=== PATIENT | female | born 2000 | race Caucasian/White ===

== ENCOUNTER 2018-05-04 14:31 | Emergency (ER) | payer OTHER ==
[~2018-05-04] VITALS: Ht 157.5 cm; Wt 56.7 kg
[~2018-05-04 14:31] MED LIST: AMOX500 PO; BENTYL10 MG PO; CEPH500 PO; Crutch1 EACH MISC; OMEP20ER PO; ONDA4 PO; PROM25 PO; Pyridium200 MG PO
== END 2018-05-04 16:26 | disposition left against medical advice (07) ==
LOC: ER 14:31
DX: Z53.21 Procedure and treatment not carried out due to patient leaving prior to being seen by health care provider (principal)
CPT/HCPCS: 71046; 99283

== ENCOUNTER 2018-11-19 02:33 | Observation (INO) | payer OTHER ==
[~2018-11-19] VITALS: Ht 160 cm; Wt 59.0 kg
[2018-11-19] MEDS ORDERED: LATUDA80 MG PO (02:52)
[2018-11-19] MEDS ORDERED: LAMO100 PO (02:52)
[2018-11-19] MEDS ORDERED: LITH300ER PO (02:52)
[2018-11-19 05:15] LABS: BASOPHILS ABSOLUTE AUTO 0.04 K/mm3 (0.00-0.23); BASOPHILS PERCENT AUTO 1 % (0-2); EOSINOPHILS ABSOLUTE AUTO 0.15 K/mm3 (0.00-0.68); EOSINOPHILS PERCENT AUTO 2 % (0-6); Hemoglobin 13.6 g/dL (11.5-16.0); IMMATURE GRAN ABSOLUTE AUTO 0.02 K/mm3 (0.00-0.10); IMMATURE GRAN PERCENT AUTO 0 % (0-1); LYMPHOCYTES ABSOLUTE AUTO 2.69 K/mm3 (0.84-5.20); LYMPHOCYTES PERCENT AUTO 32 % (21-46); MONOCYTES ABSOLUTE AUTO 0.43 K/mm3 (0.16-1.47); MONOCYTES PERCENT AUTO 5 % (4-13); Mean Corpuscular HGB 31.3 pg (26.0-34.0); Mean Corpuscular HGB Conc 32.4 g/dL (31.5-36.5); Mean Corpuscular Volume 97 fL (80-100); NEUTROPHILS ABSOLUTE AUTO 5.08 K/mm3 (1.96-9.15); NEUTROPHILS PERCENT AUTO 60 % (41-73); Platelet Count 349 K/mm3 (150-400); RDW Standard Deviation 43.1 fL (35.1-46.3); Red Blood Cell Count 4.35 M/mm3 (3.80-5.20); White Blood Cell Count 8.41 K/mm3 (4.00-11.30)
[2018-11-19 05:40] LABS: Alanine Aminotransfer (ALT/SGP 18 U/L (12-78); Albumin/Globulin Ratio 1.1 (0.8-1.8); Alk Phos 77 U/L (50-136); Anion Gap 10 mmol/L (6-16); Aspartate Aminotrans (AST/SGOT 11 U/L (12-37); Bilirubin, Total 0.6 mg/dL (0.1-1.0); Blood Urea Nitrogen 7 mg/dL (8-24); Bun/Creatinine Ratio 10.5 (12.0-20.0); CO2, Blood 24 mmol/L (21-32); Calcium, Blood 8.5 mg/dL (8.5-10.1); Chloride, Blood 111 mmol/L (98-108); Creatinine, Blood 0.67 mg/dL (0.40-1.00); Ethanol (Alcohol), Blood, Med 134 mg/dL; Globulin, Blood 3.6 g/dL (2.2-4.0); Glomerular Filtration Rate >60 (60-); Glucose, Blood 101 mg/dL (70-99); Potassium, Blood 3.8 mmol/L (3.5-5.5); Salicylate <1.7 mg/dL (2.8-20.0); Sodium, Blood 145 mmol/L (136-145); Thyroxine (T4) 9.4 ug/dL (4.8-13.9); Total Protein, Blood 7.6 g/dL (6.4-8.2)
[2018-11-19 05:48] LABS: Acetaminophen, Random <2.0 ug/mL (10.0-30.0)
[2018-11-19 05:57] LABS: Lithium <0.20 mmol/L (0.60-1.20)
[2018-11-19 07:34] LABS: Source, Urine Clean Catch
[2018-11-19 07:42] LABS: Bilirubin, Urine Neg (Neg); Blood, Urine 2+ (Neg); Glucose Qualitative, Urine Neg (Neg); Ketones, Urine Neg (Neg); Leukocyte Esterase, Urine 1+ (Neg); Nitrite, Urine Neg (Neg); Protein, Urine Neg (Neg); Specific Gravity, Urine 1.015 (1.003-1.022); Urobilinogen, Urine NORM (Normal)
[2018-11-19 07:46] LABS: Appearance, Urine Clear (Clear); Color, Urine Yellow (P-Yellow)
[2018-11-19 08:02] LABS: U Amphetamine Screen Not Detected; U Barbituate Screen Not Detected; U Benzodiazapine Screen Not Detected; U Buprenorphine Screen Not Detected; U Cannabinoids Screen DETECTED; U Cocaine Screen Not Detected; U Methadone Screen Not Detected; U Methamphetamine Screen Not Detected; U Opiates Screen Not Detected; U Oxycodone Screen Not Detected; U Phencyclidine Screen Not Detected; U Propoxyphene Screen Not Detected
[2018-11-19 08:03] LABS: Bacteria Few /hpf; Squamous Epithelial Cells Mod /hpf (Few)
[2018-11-19 08:04] LABS: Mucus Light (0-Heavy)
== END 2018-11-21 14:13 | disposition home or self-care (01) ==
LOC: ER 02:33 → EOR 02:34
PROVIDERS: Emergency Medicine
DX: S71.111A Laceration without foreign body, right thigh, initial encounter (principal); S71.112A Laceration without foreign body, left thigh, initial encounter; F31.4 Bipolar disorder, current episode depressed, severe, without psychotic features; Z79.899 Other long term (current) drug therapy; X78.9XXA Intentional self-harm by unspecified sharp object, initial encounter
CPT/HCPCS: 12001; 36415; 80053; 80178; 81001; 81025; 84436; 84443; 85025; 87086; 99285-25; G0378; G0480; Q0163; Q3014

== ENCOUNTER 2018-12-01 10:58 | Emergency (ER) | payer OTHER ==
[~2018-12-01] VITALS: Ht 154.9 cm; Wt 59.0 kg
[~2018-12-01 10:58] MED LIST changes: +LAMO100 PO; +LATUDA80 MG PO; +LITH300ER PO
[2018-12-01] MEDS ORDERED: OLAN5 PO (11:40)
[2018-12-01] MEDS ORDERED: LATUDA60 MG PO (11:40)
[2018-12-01] MEDS ORDERED: Zyprexa10 MG PO (11:48)
== END 2018-12-01 11:53 | disposition home or self-care (01) ==
LOC: ER 10:58
DX: S71.111D Laceration without foreign body, right thigh, subsequent encounter (principal); Z76.0 Encounter for issue of repeat prescription; Y33.XXXD Other specified events, undetermined intent, subsequent encounter; Z79.899 Other long term (current) drug therapy

== ENCOUNTER → 2019-01-31 | Outpatient (CLI) | payer OTHER ==
[~2019-01-31] MED LIST changes: +LATUDA60 MG PO; +OLAN5 PO; +Zyprexa10 MG PO
[2019-02-03 03:13] LABS: CHLAMYDIA TRACHOMATIS, NAA Negative (Negative); NEISSERIA GONORRHOEAE, NAA Negative (Negative)
== END ==
LOC: LAB SHORT 20:06 → LAB 20:06
PROVIDERS: Nurse Practitioner Women's Health
DX: Z11.3 Encounter for screening for infections with a predominantly sexual mode of transmission (principal); N89.8 Other specified noninflammatory disorders of vagina
CPT/HCPCS: 87070; 87205; 87491; 87591

== ENCOUNTER 2019-03-25 08:33 | Emergency (ER) | payer OTHER ==
[~2019-03-25] VITALS: Ht 157.5 cm; Wt 65.8 kg
[2019-03-25] MEDS ORDERED: Augmentin 875-1 EACH PO (08:50)
[2019-03-25] MEDS ORDERED: BIRTH CONTROL (08:50)
== END 2019-03-25 10:18 | disposition home or self-care (01) ==
LOC: ER 08:33
DX: M25.512 Pain in left shoulder (principal); M25.522 Pain in left elbow; F31.9 Bipolar disorder, unspecified; F17.200 Nicotine dependence, unspecified, uncomplicated
CPT/HCPCS: 73030; 73080; 81025

== ENCOUNTER 2019-07-07 15:07 | Observation (INO) | payer OTHER ==
[~2019-07-07] VITALS: Ht 160 cm; Wt 56.7 kg
[~2019-07-07 15:07] MED LIST changes: +Augmentin 875-1 EACH PO; +BIRTH CONTROL
[2019-07-07 16:52] LABS: BASOPHILS ABSOLUTE AUTO 0.03 K/mm3 (0.00-0.23); BASOPHILS PERCENT AUTO 0 % (0-2); EOSINOPHILS ABSOLUTE AUTO 0.07 K/mm3 (0.00-0.68); EOSINOPHILS PERCENT AUTO 1 % (0-6); Hematocrit 40.3 % (33.0-51.0); Hemoglobin 13.6 g/dL (11.5-16.0); IMMATURE GRAN ABSOLUTE AUTO 0.02 K/mm3 (0.00-0.10); IMMATURE GRAN PERCENT AUTO 0 % (0-1); LYMPHOCYTES ABSOLUTE AUTO 1.92 K/mm3 (0.84-5.20); LYMPHOCYTES PERCENT AUTO 18 % (21-46); MONOCYTES ABSOLUTE AUTO 0.96 K/mm3 (0.16-1.47); MONOCYTES PERCENT AUTO 9 % (4-13); Mean Corpuscular HGB 31.9 pg (26.0-34.0); Mean Corpuscular HGB Conc 33.7 g/dL (31.5-36.5); Mean Corpuscular Volume 94 fL (80-100); Mean Platelet Volume 9.5 fL (9.1-12.4); NEUTROPHILS ABSOLUTE AUTO 7.63 K/mm3 (1.96-9.15); NEUTROPHILS PERCENT AUTO 72 % (41-73); Platelet Count 311 K/mm3 (150-400); RDW Coefficient Variation 12.1 % (11.7-14.2); RDW Standard Deviation 41.8 fL (35.1-46.3); Red Blood Cell Count 4.27 M/mm3 (3.80-5.20); White Blood Cell Count 10.63 K/mm3 (4.00-11.30)
[2019-07-07 17:01] LABS: Source, Urine Voided
[2019-07-07 17:05] LABS: Bilirubin, Urine Neg (Neg); Blood, Urine 2+ (Neg); Glucose Qualitative, Urine Neg (Neg); Ketones, Urine 1+ (Neg); Leukocyte Esterase, Urine 2+ (Neg); Nitrite, Urine Pos (Neg); Protein, Urine Neg (Neg); Urobilinogen, Urine NORM (Normal)
[2019-07-07 17:18] LABS: U Amphetamine Screen Not Detected; U Cannabinoids Screen DETECTED
[2019-07-07 17:19] LABS: U Barbituate Screen Not Detected; U Benzodiazapine Screen Not Detected; U Buprenorphine Screen Not Detected; U Cocaine Screen Not Detected; U Methadone Screen Not Detected; U Methamphetamine Screen Not Detected; U Opiates Screen Not Detected; U Oxycodone Screen Not Detected; U Phencyclidine Screen Not Detected; U Propoxyphene Screen Not Detected
[2019-07-07 17:22] LABS: Alanine Aminotransfer (ALT/SGP 21 U/L (12-78); Albumin, Blood 4.5 g/dL (3.4-5.0); Albumin/Globulin Ratio 1.3 (0.8-1.8); Alk Phos 75 U/L (50-136); Anion Gap 7 mmol/L (6-16); Aspartate Aminotrans (AST/SGOT 10 U/L (12-37); Bilirubin, Total 1.3 mg/dL (0.1-1.0); Blood Urea Nitrogen 4 mg/dL (8-24); Bun/Creatinine Ratio 6.3 (12.0-20.0); CO2, Blood 26 mmol/L (21-32); Calcium, Blood 9.5 mg/dL (8.5-10.1); Chloride, Blood 105 mmol/L (98-108); Creatinine, Blood 0.64 mg/dL (0.40-1.00); Ethanol (Alcohol), Blood, Med <3 mg/dL; Globulin, Blood 3.4 g/dL (2.2-4.0); Glomerular Filtration Rate >60 (60-); Glucose, Blood 112 mg/dL (70-99); Potassium, Blood 3.2 mmol/L (3.5-5.5); Salicylate 3.3 mg/dL (2.8-20.0); Sodium, Blood 138 mmol/L (136-145); Total Protein, Blood 7.9 g/dL (6.4-8.2)
[2019-07-07 17:23] LABS: Appearance, Urine Hazy (Clear); Color, Urine Yellow (P-Yellow)
[2019-07-07 17:29] LABS: Amorphous Mod (0-Heavy); Bacteria Many /hpf; Red Blood Cells, Urine 0-2 /hpf (0-2); Squamous Epithelial Cells Many /hpf (Few)
[2019-07-07 17:33] LABS: Acetaminophen, Random <2.0 ug/mL (10.0-30.0)
[2019-07-08] MEDS ORDERED: OLAN10 PO (20:55)
== END 2019-07-08 21:15 | disposition home or self-care (01) ==
LOC: ER 15:07 → EOR 15:08
PROVIDERS: ADMIT Emergency Medicine
DX: F60.3 Borderline personality disorder (principal); F31.9 Bipolar disorder, unspecified
CPT/HCPCS: 80053; 81001; 81025; 84443; 85025; 87077; 87086; 87186; 96372; 99285; G0378; G0480; J1200; J1630; J2060; Q3014

== ENCOUNTER 2019-07-28 01:18 | Emergency (ER) | payer OTHER ==
[~2019-07-28] VITALS: Ht 154.9 cm; Wt 72.6 kg
[~2019-07-28 01:18] MED LIST changes: +OLAN10 PO
[2019-07-28] MEDS ORDERED: PROP10 PO (01:41)
[2019-07-28 02:14] LABS: Source, Urine Clean Catch
[2019-07-28 02:35] LABS: Bilirubin, Urine Neg (Neg); Blood, Urine 4+ (Neg); Glucose Qualitative, Urine Neg (Neg); Ketones, Urine Neg (Neg); Leukocyte Esterase, Urine Neg (Neg); Nitrite, Urine Neg (Neg); Protein, Urine Neg (Neg); Specific Gravity, Urine 1.005 (1.003-1.022); Urobilinogen, Urine NORM (Normal)
[2019-07-28 02:38] LABS: Appearance, Urine Clear (Clear); Color, Urine Yellow (P-Yellow)
[2019-07-28 02:43] LABS: Bacteria Not Seen /hpf; Red Blood Cells, Urine Rare /hpf (0-2); Squamous Epithelial Cells Few /hpf (Few); White Blood Cells, Urine Not Seen /hpf (0-5)
== END 2019-07-28 02:30 | disposition left against medical advice (07) ==
LOC: ER 01:18
PROVIDERS: Emergency Medicine
DX: Z53.21 Procedure and treatment not carried out due to patient leaving prior to being seen by health care provider (principal)
CPT/HCPCS: 81001; 81025

== ENCOUNTER → 2019-09-27 | Outpatient (CLI) | payer OTHER ==
[~2019-09-27] MED LIST changes: +PROP10 PO
[2019-09-27 19:19] LABS: Source, Urine Catheter
[2019-09-27 20:33] LABS: Bilirubin, Urine Neg (Neg); Blood, Urine 1+ (Neg); Glucose Qualitative, Urine Neg (Neg); Ketones, Urine Neg (Neg); Leukocyte Esterase, Urine Neg (Neg); Nitrite, Urine Neg (Neg); Protein, Urine Neg (Neg); Urobilinogen, Urine NORM (Normal)
[2019-09-27 20:51] LABS: Appearance, Urine Hazy (Clear); Color, Urine Yellow (P-Yellow)
[2019-09-27 20:54] LABS: Bacteria Mod /hpf; Squamous Epithelial Cells Mod /hpf (Few)
== END | disposition home or self-care (01) ==
LOC: LAB 19:07 → LAB SHORT 19:07
PROVIDERS: Nurse Practitioner Women's Health
DX: Z11.3 Encounter for screening for infections with a predominantly sexual mode of transmission (principal); Z12.4 Encounter for screening for malignant neoplasm of cervix; N89.8 Other specified noninflammatory disorders of vagina
CPT/HCPCS: 81001

== ENCOUNTER 2020-03-12 18:51 | Emergency (ER) | payer OTHER ==
[~2020-03-12] VITALS: Ht 157.5 cm; Wt 70.8 kg
[2020-03-12 20:11] LABS: BASOPHILS ABSOLUTE AUTO 0.06 K/mm3 (0.00-0.23); BASOPHILS PERCENT AUTO 0 % (0-2); EOSINOPHILS ABSOLUTE AUTO 0.04 K/mm3 (0.00-0.68); EOSINOPHILS PERCENT AUTO 0 % (0-6); Hematocrit 41.9 % (33.0-51.0); IMMATURE GRAN ABSOLUTE AUTO 0.19 K/mm3 (0.00-0.10); IMMATURE GRAN PERCENT AUTO 1 % (0-1); LYMPHOCYTES ABSOLUTE AUTO 1.68 K/mm3 (0.84-5.20); LYMPHOCYTES PERCENT AUTO 7 % (21-46); MONOCYTES ABSOLUTE AUTO 0.75 K/mm3 (0.16-1.47); MONOCYTES PERCENT AUTO 3 % (4-13); Mean Corpuscular HGB 30.7 pg (26.0-34.0); Mean Corpuscular HGB Conc 33.4 g/dL (31.5-36.5); Mean Corpuscular Volume 92 fL (80-100); Mean Platelet Volume 9.5 fL (9.1-12.4); NEUTROPHILS ABSOLUTE AUTO 20.04 K/mm3 (1.96-9.15); NEUTROPHILS PERCENT AUTO 88 % (41-73); Platelet Count 455 K/mm3 (150-400); RDW Standard Deviation 40.6 fL (35.1-46.3); Red Blood Cell Count 4.56 M/mm3 (3.80-5.20); White Blood Cell Count 22.76 K/mm3 (4.00-11.30)
[2020-03-12 20:52] LABS: BAND PERCENT MAN 2 % (0-8); BASOPHILS PERCENT MAN 0 % (0-2); EOSINOPHILS ABSOLUTE MAN 0.22 K/mm3 (0.00-0.68); EOSINOPHILS PERCENT MAN 1 % (0-6); LYMPHOCYTES ABSOLUTE MAN 1.13 K/mm3 (0.84-5.20); LYMPHOCYTES PERCENT MAN 5 % (21-46); MONOCYTES ABSOLUTE MAN 0.68 K/mm3 (0.16-1.47); MONOCYTES PERCENT MAN 3 % (4-13); NEUTROPHILS ABSOLUTE MAN 20.71 K/mm3 (1.96-9.15); SEG NEUTROPHILS PERCENT MAN 89 % (41-73); TOTAL CELLS COUNTED 100
[2020-03-12 21:27] LABS: Source, Urine Clean Catch
[2020-03-12 21:29] LABS: Alanine Aminotransfer (ALT/SGP 27 U/L (12-78); Albumin, Blood 4.2 g/dL (3.4-5.0); Alk Phos 101 U/L (50-136); Anion Gap 9 mmol/L (6-16); Aspartate Aminotrans (AST/SGOT 18 U/L (12-37); Bilirubin, Total 1.1 mg/dL (0.1-1.0); Blood Urea Nitrogen 13 mg/dL (8-24); Bun/Creatinine Ratio 16.4 (12.0-20.0); CO2, Blood 23 mmol/L (21-32); Calcium, Blood 9.1 mg/dL (8.5-10.1); Chloride, Blood 104 mmol/L (98-108); Creatinine, Blood 0.79 mg/dL (0.40-1.00); Globulin, Blood 4.4 g/dL (2.2-4.0); Glomerular Filtration Rate >60 (60-); Glucose, Blood 163 mg/dL (70-99); Potassium, Blood 3.8 mmol/L (3.5-5.5); Sodium, Blood 136 mmol/L (136-145); Total Protein, Blood 8.6 g/dL (6.4-8.2)
[2020-03-12 21:44] LABS: Appearance, Urine Turbid (Clear); Bilirubin, Urine Neg (Neg); Blood, Urine 3+ (Neg); Color, Urine Yellow (P-Yellow); Glucose Qualitative, Urine Neg (Neg); Ketones, Urine 4+ (Neg); Leukocyte Esterase, Urine Neg (Neg); Nitrite, Urine Neg (Neg); Protein, Urine 2+ (Neg); Urobilinogen, Urine NORM (Normal)
[2020-03-12 21:57] LABS: Amorphous Heavy (0-Heavy); Bacteria Few /hpf; Red Blood Cells, Urine 0-2 /hpf (0-2); Squamous Epithelial Cells Few /hpf (Few); White Blood Cells, Urine 0-2 /hpf (0-5)
== END 2020-03-13 01:28 | disposition home or self-care (01) ==
LOC: ER 18:51
PROVIDERS: Emergency Medicine; Physician Assistant
DX: E86.0 Dehydration (principal); R11.2 Nausea with vomiting, unspecified; D72.829 Elevated white blood cell count, unspecified; F31.9 Bipolar disorder, unspecified; F17.200 Nicotine dependence, unspecified, uncomplicated; Z79.899 Other long term (current) drug therapy
CPT/HCPCS: 36415; 80053; 81001; 83690; 84703; 85025; 96361; 96374; 96375; 99283-25; J0780; J1200; J2405; J7030

== ENCOUNTER 2020-07-11 21:40 | Observation (INO) | payer OTHER ==
[~2020-07-11] VITALS: Ht 154.9 cm; Wt 61.2 kg
[2020-07-11 23:53] LABS: Source, Urine Clean Catch
[2020-07-11 23:58] LABS: Bilirubin, Urine Neg (Neg); Blood, Urine 1+ (Neg); Glucose Qualitative, Urine Neg (Neg); Ketones, Urine Neg (Neg); Leukocyte Esterase, Urine Neg (Neg); Nitrite, Urine Neg (Neg); Protein, Urine Neg (Neg); Urobilinogen, Urine NORM (Normal); pH, Urine 6.5 (5.0-8.0)
[2020-07-12 00:06] LABS: BASOPHILS ABSOLUTE AUTO 0.03 K/mm3 (0.00-0.23); BASOPHILS PERCENT AUTO 0 % (0-2); EOSINOPHILS ABSOLUTE AUTO 0.12 K/mm3 (0.00-0.68); EOSINOPHILS PERCENT AUTO 1 % (0-6); Hematocrit 44.4 % (33.0-51.0); Hemoglobin 14.5 g/dL (11.5-16.0); IMMATURE GRAN ABSOLUTE AUTO 0.02 K/mm3 (0.00-0.10); IMMATURE GRAN PERCENT AUTO 0 % (0-1); LYMPHOCYTES PERCENT AUTO 37 % (21-46); MONOCYTES ABSOLUTE AUTO 0.52 K/mm3 (0.16-1.47); MONOCYTES PERCENT AUTO 6 % (4-13); Mean Corpuscular HGB Conc 32.7 g/dL (31.5-36.5); Mean Corpuscular Volume 95 fL (80-100); Mean Platelet Volume 9.2 fL (9.1-12.4); NEUTROPHILS ABSOLUTE AUTO 5.23 K/mm3 (1.96-9.15); NEUTROPHILS PERCENT AUTO 56 % (41-73); Platelet Count 393 K/mm3 (150-400); RDW Coefficient Variation 12.9 % (11.7-14.2); RDW Standard Deviation 45.2 fL (35.1-46.3); Red Blood Cell Count 4.67 M/mm3 (3.80-5.20); White Blood Cell Count 9.32 K/mm3 (4.00-11.30)
[2020-07-12 00:19] LABS: U Amphetamine Screen Not Detected; U Barbituate Screen Not Detected; U Benzodiazapine Screen Not Detected; U Buprenorphine Screen Not Detected; U Cannabinoids Screen DETECTED; U Cocaine Screen Not Detected; U Methadone Screen Not Detected; U Methamphetamine Screen Not Detected; U Opiates Screen Not Detected; U Oxycodone Screen Not Detected; U Phencyclidine Screen Not Detected; U Propoxyphene Screen Not Detected
[2020-07-12 00:34] LABS: Alanine Aminotransfer (ALT/SGP 27 U/L (12-78); Albumin, Blood 4.1 g/dL (3.4-5.0); Albumin/Globulin Ratio 1.1 (0.8-1.8); Alk Phos 82 U/L (50-136); Anion Gap 5 mmol/L (6-16); Aspartate Aminotrans (AST/SGOT 15 U/L (12-37); Bilirubin, Total 0.3 mg/dL (0.1-1.0); Blood Urea Nitrogen 5 mg/dL (8-24); Bun/Creatinine Ratio 7.1 (12.0-20.0); CO2, Blood 27 mmol/L (21-32); Calcium, Blood 8.4 mg/dL (8.5-10.1); Chloride, Blood 113 mmol/L (98-108); Creatinine, Blood 0.71 mg/dL (0.40-1.00); Ethanol (Alcohol), Blood, Med 250 mg/dL; Globulin, Blood 3.9 g/dL (2.2-4.0); Glomerular Filtration Rate >60 (60-); Glucose, Blood 108 mg/dL (70-99); Potassium, Blood 3.8 mmol/L (3.5-5.5); Sodium, Blood 145 mmol/L (136-145)
[2020-07-12 00:35] LABS: Appearance, Urine Clear (Clear); Color, Urine Pale Yellow (P-Yellow)
[2020-07-12 00:40] LABS: Bacteria Rare /hpf; Red Blood Cells, Urine Not Seen /hpf (0-2); Squamous Epithelial Cells Rare /hpf (Few); White Blood Cells, Urine Not Seen /hpf (0-5)
== END 2020-07-12 11:15 | disposition home or self-care (01) ==
LOC: ER 21:40 → EOR 21:41
PROVIDERS: Emergency Medicine; ADMIT Emergency Medicine
DX: S41.112A Laceration without foreign body of left upper arm, initial encounter (principal); X83.8XXA Intentional self-harm by other specified means, initial encounter; F31.9 Bipolar disorder, unspecified; F17.210 Nicotine dependence, cigarettes, uncomplicated
CPT/HCPCS: 80053; 81001; 85025; 99285; G0378; G0480; Q3014

== ENCOUNTER 2020-07-31 21:52 | Inpatient (IN) | payer OTHER ==
[~2020-07-31] VITALS: Ht 165.1 cm; Wt 68.9 kg
[2020-07-31 22:38] LABS: BASOPHILS ABSOLUTE AUTO 0.06 K/mm3 (0.00-0.23); BASOPHILS PERCENT AUTO 0 % (0-2); EOSINOPHILS ABSOLUTE AUTO 0.32 K/mm3 (0.00-0.68); EOSINOPHILS PERCENT AUTO 2 % (0-6); Hematocrit 43.8 % (33.0-51.0); Hemoglobin 14.3 g/dL (11.5-16.0); IMMATURE GRAN ABSOLUTE AUTO 0.07 K/mm3 (0.00-0.10); IMMATURE GRAN PERCENT AUTO 0 % (0-1); LYMPHOCYTES ABSOLUTE AUTO 4.08 K/mm3 (0.84-5.20); LYMPHOCYTES PERCENT AUTO 21 % (21-46); MONOCYTES ABSOLUTE AUTO 1.24 K/mm3 (0.16-1.47); MONOCYTES PERCENT AUTO 6 % (4-13); Mean Corpuscular HGB 31.2 pg (26.0-34.0); Mean Corpuscular HGB Conc 32.6 g/dL (31.5-36.5); Mean Corpuscular Volume 95 fL (80-100); Mean Platelet Volume 9.6 fL (9.1-12.4); NEUTROPHILS ABSOLUTE AUTO 13.74 K/mm3 (1.96-9.15); NEUTROPHILS PERCENT AUTO 70 % (41-73); Platelet Count 380 K/mm3 (150-400); RDW Coefficient Variation 13.1 % (11.7-14.2); RDW Standard Deviation 46.1 fL (35.1-46.3); Red Blood Cell Count 4.59 M/mm3 (3.80-5.20); White Blood Cell Count 19.51 K/mm3 (4.00-11.30)
[2020-07-31 22:50] LABS: Alanine Aminotransfer (ALT/SGP 27 U/L (12-78); Albumin, Blood 4.2 g/dL (3.4-5.0); Alk Phos 79 U/L (50-136); Anion Gap 8 mmol/L (6-16); Aspartate Aminotrans (AST/SGOT 19 U/L (12-37); Bilirubin, Total 0.6 mg/dL (0.1-1.0); Blood Urea Nitrogen 14 mg/dL (8-24); Bun/Creatinine Ratio 17.6 (12.0-20.0); CO2, Blood 22 mmol/L (21-32); Calcium, Blood 9.2 mg/dL (8.5-10.1); Chloride, Blood 109 mmol/L (98-108); Ethanol (Alcohol), Blood, Med 6 mg/dL; Glomerular Filtration Rate >60 (60-); Glucose, Blood 93 mg/dL (70-99); Potassium, Blood 4.1 mmol/L (3.5-5.5); Sodium, Blood 139 mmol/L (136-145); Total Protein, Blood 8.2 g/dL (6.4-8.2)
[2020-07-31 22:52] LABS: Acetaminophen, Random <2.0 ug/mL (10.0-30.0)
[2020-07-31 23:05] LABS: CPK Creatine Kinase 130 U/L (26-193)
[2020-07-31 23:33] LABS: Source, Urine Clean Catch
[2020-07-31 23:35] LABS: Bilirubin, Urine Neg (Neg); Blood, Urine 1+ (Neg); Glucose Qualitative, Urine Neg (Neg); Ketones, Urine Neg (Neg); Leukocyte Esterase, Urine Neg (Neg); Nitrite, Urine Neg (Neg); Protein, Urine Neg (Neg); Specific Gravity, Urine 1.025 (1.003-1.022); Urobilinogen, Urine NORM (Normal)
[2020-07-31 23:50] LABS: U Amphetamine Screen Not Detected; U Barbituate Screen Not Detected; U Benzodiazapine Screen Not Detected; U Buprenorphine Screen Not Detected; U Cannabinoids Screen DETECTED; U Cocaine Screen Not Detected; U Methadone Screen Not Detected; U Methamphetamine Screen Not Detected; U Opiates Screen Not Detected; U Oxycodone Screen Not Detected; U Phencyclidine Screen Not Detected; U Propoxyphene Screen Not Detected
[2020-08-01] LABS: Color, Urine Yellow (P-Yellow)
[2020-08-01 00:01] LABS: Appearance, Urine Clear (Clear)
[2020-08-01 00:02] LABS: Bacteria Not Seen /hpf; Red Blood Cells, Urine Rare /hpf (0-2); Squamous Epithelial Cells Few /hpf (Few); White Blood Cells, Urine Not Seen /hpf (0-5)
[2020-08-01 01:22] LABS: Magnesium, Blood 2.3 mg/dL (1.6-2.4)
[2020-08-01 01:22] LABS: PCO2 Arterial 40.1 mmHg (35-45); PO2 Arterial 115 mmHg (80-100); pH Blood Arterial 7.33 (7.35-7.45)
[2020-08-01 04:09] LABS: BASOPHILS ABSOLUTE AUTO 0.03 K/mm3 (0.00-0.23); BASOPHILS PERCENT AUTO 0 % (0-2); EOSINOPHILS ABSOLUTE AUTO 0.21 K/mm3 (0.00-0.68); EOSINOPHILS PERCENT AUTO 1 % (0-6); Hematocrit 41.2 % (33.0-51.0); Hemoglobin 13.1 g/dL (11.5-16.0); IMMATURE GRAN ABSOLUTE AUTO 0.07 K/mm3 (0.00-0.10); IMMATURE GRAN PERCENT AUTO 0 % (0-1); LYMPHOCYTES PERCENT AUTO 17 % (21-46); MONOCYTES ABSOLUTE AUTO 1.33 K/mm3 (0.16-1.47); MONOCYTES PERCENT AUTO 8 % (4-13); Mean Corpuscular HGB 30.8 pg (26.0-34.0); Mean Corpuscular HGB Conc 31.8 g/dL (31.5-36.5); Mean Corpuscular Volume 97 fL (80-100); Mean Platelet Volume 9.5 fL (9.1-12.4); NEUTROPHILS ABSOLUTE AUTO 12.78 K/mm3 (1.96-9.15); NEUTROPHILS PERCENT AUTO 73 % (41-73); Platelet Count 318 K/mm3 (150-400); RDW Coefficient Variation 13.2 % (11.7-14.2); RDW Standard Deviation 46.8 fL (35.1-46.3); Red Blood Cell Count 4.26 M/mm3 (3.80-5.20); White Blood Cell Count 17.42 K/mm3 (4.00-11.30)
[2020-08-01 04:37] LABS: Alanine Aminotransfer (ALT/SGP 27 U/L (12-78); Albumin, Blood 3.5 g/dL (3.4-5.0); Albumin/Globulin Ratio 1.1 (0.8-1.8); Alk Phos 65 U/L (50-136); Anion Gap 6 mmol/L (6-16); Aspartate Aminotrans (AST/SGOT 22 U/L (12-37); Bilirubin, Total 0.7 mg/dL (0.1-1.0); Blood Urea Nitrogen 13 mg/dL (8-24); CO2, Blood 25 mmol/L (21-32); Calcium, Blood 8.4 mg/dL (8.5-10.1); Chloride, Blood 110 mmol/L (98-108); Creatinine, Blood 0.77 mg/dL (0.40-1.00); Globulin, Blood 3.2 g/dL (2.2-4.0); Glomerular Filtration Rate >60 (60-); Glucose, Blood 92 mg/dL (70-99); Potassium, Blood 3.8 mmol/L (3.5-5.5); Sodium, Blood 141 mmol/L (136-145); Total Protein, Blood 6.7 g/dL (6.4-8.2)
--- NOTE | 2020-08-01 04:42 | NUR ---
ADMIT NOTE PATIENT ADMITTED TO ICU 12 VIA STRETCHER FROM ED AT 0040. PROPOFOL INFUSING AT 60 MCG/KG/MIN. PATIENT PULLING AGAINST SOFT RESTRAINTS X 4. ETT IN PLACE. VITAL SIGNS STABLE UPON ARRIVAL. [place] CATHETER IN PLACE AND PATENT. PIV X [address] NS BOLUS COMPLETED. PATIENT ARRIVED WITH A CELL PHONE AND A SKIRT WHICH WERE PLACED IN A BELONGING BAG. PROVIDER CALLED REGARDING SEDATION NEEDS. PATIENT STILL AGITATED, SITTING UP IN BED AND KICKING. ORDERS RECIEVED FOR ADDITIONAL SEDATION. CLARIFIED ZOSYN ORDER. THIS WILL BE HELD AND WE WILL CONTINUE TO MONITOR FOR SIGNS OF INFECTION.
--- NOTE | 2020-08-01 07:00 | NUR ---
CARE ASSUMED 0700 PT INTUBATED AND SEDATED, PROPOFOL @ 60. AC 14, 400, 5, 25% AND SPO2 97%. PT ABLE TO SQUEEZE HAND, NODS HEAD, PULLING AT RESTRAINTS OCCASIONALLY, AND OPENS EYES OCCASIONALLY DURING ORAL CARE.PT BECOMES RESTLESS/AGIATED AT TIME AND THRASHING IN BED. DIFFICULT TO REDIRECT. PRN VERSAD GIVEN WITH GOOD EFFECT. NS INFUSING AT 75 ML/HR. PT IS ON FOUR POINT SOFT RESTRAINTS. LUNG SOUNDS CLEAR. [place] CATH IN PLACE. PATENT AND INTACT. WILL CONTINUE TO MONITER.
--- NOTE | 2020-08-01 14:44 | NUR ---
EXTUBATION 1330 DR. MONTANO AND RT AT PT BEDSIDE FOR EXTUBATION. PROPOFOL STOPPED AND PRECEDEX INCREASED TO 0.07 MCG. PTS AGITATION INCREASED AND THRASHING IN BED. VITAL SIGNS STABLE. PT RECEIVED ATIVAN 2 MG AND HALOPERIDOL 3 MG BEFORE EXTUBATION. PT WAS EXTUBATED SUCCESSFULLY AT 1330. SP02 98% ON ROOM AIR. POST EXTUBATION, PT VITAL SIGNS CONTINUE TO BE STABLE AND PRECEDEX DECREASED TO 0.05 MCG. PT STATES, "GOD TOOK MY VOICE, AND YOU KNOW IT " WHEN TRYING TO REORIENT PT TO THE UNIT. PT BECAME SLIGHTLY AGITATED WHEN CONVERSING WITH STAFF BUT QUICKLY WENT BACK TO SLEEP WHEN NOT STIMULATED. WILL CONTINUE TO MONITOR.
--- NOTE | 2020-08-01 18:26 | NUR ---
SHIFT SUMMARY SEE PREVIOUS NOTE RELATED TO EXTUBATION AND BEHAVIORS. PT MOSTLY SLEEPING FOR REMAINDER OF SHIFT BUT CONTINUES TO BECOME AWAKE AND AGITATED/MANIC STATE/TEARFUL AT TIMES. DIFFICULT TO CONVERSE WITH STAFF AND EXPLAIN INVOLUNTARY HOLD DUE TO PTS CONTINUES RAMBLING ABOUT UNRELATED SUBJECTS. PT REFUSED TO SIGN CIVIL RIGHTS PAPERWORK. PT STATES, "I'M NOT WORRIED ABOUT HURTING MYSELF, BUT I WILL HURT OTHER PEOPLE." PT ORIENTED TO HOSPITAL BUT FREQUENTLY ATTEMPTS TO GET OUT OF BED TO LEAVE FACILITY. PRECEDEX TITRATED BETWEEN 0.2 TO 0.5 MCG/KG/HR. BORDERLINE SBP (90-80'S) WITH PRECEDEX BETWEEN 0.4 TO 0.5 MCG/KG/HR. THEREFORE, PRECEDEX LEFT AT 0.3 MCG/KG/HR AT THIS TIME. PRN ATIVAN GIVEN X 3 WITH GOOD EFFECT. TOLERATED A FEW ICE CHIPS AT THE END OF SHIFT WITHOUT DIFFICULTY. PT SLEEPING AT THIS TIME AND WILL REPORT TO ONCOMING SHIFT. JEFFREY YIN SPOKE WITH MOTHER/FATHER EARLIER THIS SHIFT. UPDATED FAMILY ON PTS CONDITION. ALL QUESTIONS ANSWERED TO THEIR SATISFACTION.
--- NOTE | 2020-08-01 18:44 | NUR ---
SUICIDE REASSESSMENT PT UNABLE TO OR REFUSES TO ANSWER QUESTIONS RELATED TO [place] SUICIDE REASSESSMENT T/O SHIFT.
--- NOTE | 2020-08-01 20:35 | NUR ---
ASSUMING CARE/SUICIDE REASSESSMENT NOTE WHEN ASKED SUICIDE RISK ASSESSMENT QUESTIONS, THE PATIENT WENT BACK AND FORTH ON HER ANSWERS. WHEN ASKED IF SHE FELT LIKE SHE WAS STILL HAVING SUICIDAL THOUGHTS SHE SAID, "WELL I WANT TO KILL MYSELF BECAUSE I CANT TALK TO MY BOYFRIEND." WHEN ASKED IF SHE HAD PLANS TO HARM HERSELF SHE SAID, "WHEN DID I SAY I WAS GOING TO HURT MYSELF?" AND PATIENT BECAME AGITATED. WHEN ASKED THE QUESTIONS A SECOND TIME, SHE DENIED SUICIDAL IDEATION AND DENIED HAVING ANY PLANS FOR SELF HARM. SHE BECAME TEARFUL. SHE REFUSED HER ZYPREXA AFTER SAYING SHE "OVERDOSED ON IT YESTERDAY" AND TOOK 15 MG INSTEAD OF 10 MG. PROVIDER NOTIFIED OF REFUSAL AND COMMENTS REGARDING OVERDOSE. THE PATIENT'S MOOD REMAINS LABILE. SHE IS TEARFUL AT TIMES AND THEN BECOMES AGITATED AND YELLS AT STAFF. OTHER TIMES SHE IS CALM AND COOPERATIVE. 1 MG OF ATIVAN IV GIVEN. PRECEDEX CONTINUES AT 0.3 MCG. 1:1 SITTER CONTINUES. PATIENT REMAINS RESTRATINED FOR SAFETY SHE CONTINUES TO PULL AT TUBES AND LINES. SHE IS IN SINUS RHYTHM ON THE BEDSIDE DIRECTOR OF CARDIAC REHABILITATION AND IS OCCASSIONALLY BRADYCARDIC IN THE LOW 50S. BP IS SOFT AT TIMES WITH SBP IN THE 90S. THE PATIENT HAS STABLE OXYGEN SATURATION ON ROOM AIR. [place] CATHETER IN PLACE AND PATENT. PIV X [address]
[2020-08-02 03:45] LABS: BASOPHILS ABSOLUTE AUTO 0.03 K/mm3 (0.00-0.23); BASOPHILS PERCENT AUTO 0 % (0-2); EOSINOPHILS ABSOLUTE AUTO 0.39 K/mm3 (0.00-0.68); EOSINOPHILS PERCENT AUTO 4 % (0-6); Hematocrit 37.1 % (33.0-51.0); Hemoglobin 11.9 g/dL (11.5-16.0); IMMATURE GRAN ABSOLUTE AUTO 0.02 K/mm3 (0.00-0.10); IMMATURE GRAN PERCENT AUTO 0 % (0-1); LYMPHOCYTES ABSOLUTE AUTO 2.13 K/mm3 (0.84-5.20); LYMPHOCYTES PERCENT AUTO 21 % (21-46); MONOCYTES PERCENT AUTO 7 % (4-13); Mean Corpuscular HGB 31.1 pg (26.0-34.0); Mean Corpuscular HGB Conc 32.1 g/dL (31.5-36.5); Mean Corpuscular Volume 97 fL (80-100); Mean Platelet Volume 9.7 fL (9.1-12.4); NEUTROPHILS ABSOLUTE AUTO 6.83 K/mm3 (1.96-9.15); NEUTROPHILS PERCENT AUTO 68 % (41-73); Platelet Count 278 K/mm3 (150-400); RDW Coefficient Variation 12.9 % (11.7-14.2); RDW Standard Deviation 46.3 fL (35.1-46.3); Red Blood Cell Count 3.83 M/mm3 (3.80-5.20)
[2020-08-02 04:08] LABS: Alanine Aminotransfer (ALT/SGP 31 U/L (12-78); Alk Phos 69 U/L (50-136); Anion Gap 7 mmol/L (6-16); Aspartate Aminotrans (AST/SGOT 17 U/L (12-37); Bilirubin, Total 1.5 mg/dL (0.1-1.0); Blood Urea Nitrogen 9 mg/dL (8-24); Bun/Creatinine Ratio 13.6 (12.0-20.0); CO2, Blood 22 mmol/L (21-32); Calcium, Blood 7.9 mg/dL (8.5-10.1); Chloride, Blood 114 mmol/L (98-108); Creatinine, Blood 0.66 mg/dL (0.40-1.00); Globulin, Blood 3.1 g/dL (2.2-4.0); Glomerular Filtration Rate >60 (60-); Glucose, Blood 71 mg/dL (70-99); Magnesium, Blood 2.1 mg/dL (1.6-2.4); Potassium, Blood 3.3 mmol/L (3.5-5.5); Sodium, Blood 143 mmol/L (136-145); Total Protein, Blood 6.1 g/dL (6.4-8.2)
--- NOTE | 2020-08-02 06:46 | NUR ---
END OF SHIFT SUMMARY PATIENT'S MOOD REMAINED LABILE THIS SHIFT. SHE BECAME VERY AGITATED AFTER THE IV WITH PRECEDEX INFILTRATED. SHE WAS VERBALLY AGGRESSIVE AND ATTEMPTED TO KICK AND HIT AT STAFF. SHE WAS CALM AND COOPERATIVE ONCE IV ACCESS WAS RE-ESTABLISHED AND PRECEDEX WAS RESTARTED. PRN ATIVAN GIVEN FOR AGITATION & ANXIETY. SHE WAS HAVING GRANDIOSE DELUSIONS STATING "I AM JOHN AND YOU ALL WILL LISTEN TO ME" SHE ALSO THREATENED TO KILL STAFF WHEN SHE BECAME AGITATED. HER BP HAS REMAINED STABLE THIS SHIFT. SHE IS NSR WITH A RATE IN THE 80S-90S. LUNGS ARE CLEAR. SHE IS TOLERATING ROOM AIR. SHE HAS A [place] CATHETER IN PLACE WITH ADEQUATE URINE OUTPUT. SKIN IS INTACT. PIV IN PLACE X 2.
--- NOTE | 2020-08-02 07:00 | NUR ---
CARE ASSUMED 0700 PT AWAKE, ON RA, AND AWARE THAT SHE IS IN A HOSPITAL BUT UNABLE TO STATE WHICH HOSPITAL. PT BECOMES EASILY AGITATED WHEN STIMULATED. PT TOLERATING ICE CHIPS WELL. VITAL SIGNS STABLE. PRECEDEX 0.7 MCG/KG/HR INFUSING IN L FOREARM (20G). PT ON RA WITH LOOSE COUGH AND CLEAR LUNG SOUNDS. NS INFUSING IN RIGHT UPPER ARM. [place] CATH IN PLACE, PATENT/INTACT. DR. SCHMITZ IN TO SEE PT AND WOULD LIKE TO ADVANCE DIET. MENTAL HEALTH PROJECTION PRINTER IN TO SEE PT. UPDATED PTS MOTHER AND FATHER ON PT THIS MORNING VIA PHONE. ALL QUESTIONS ANSWERED. PTS MOTHER WILL TRY TO VISIT TODAY.
--- NOTE | 2020-08-02 12:38 | NUR ---
0787 ICU 12 On unit to interview for Safety Plan--not completed. RN reports patient agitated and restrained for safety. Will attempt when patient is more stable and able to participate in Plan Ju Hoffman M.Ed., [facility] Dir
--- NOTE | 2020-08-02 15:36 | NUR ---
Safety Plan interview attempted 1530 today. Pt predsented as confused and speaking in a low voice, at times unintellligible. She denied attempting to kill herself. Did show several cuts she had on her arm she had done prior to coming to [facility], She says her "friend" called the police when he saw the blood from her cuts. Pt unabe to participate in Suicide Safety Plan at this time. She becam loud when she said she missed her appointment today with Graciela at [facility], for her meds. RN informed of patient unable to engage. Ju Hoffman M.Ed., [facility]
--- NOTE | 2020-08-02 18:20 | NUR ---
SHIFT SUMMARY PT HAS DENIED SI/HI T/O THE DAY. PT CONFUSED AND LABILE AT TIMES. PT WAS COOPERATIVE, RESTRIANTS DC'ED AND PRECEDEX WAS TITRATED OFF. PT WAS ABLE TO SUCESSFULLY TAKE A SHOWER WITH ONE ASSIST. [place] CATH REMOVED AND PT TOLERATED WELL. PT HAS VOIDED SINCE [place] D/C. MIDDLEKAUFF IN TO SEE PT AND SI PRECAUT D/C AND PT REMAINS ON 2 MD HOLD. PT MED STATUS, NO TELE. PT REMAINS COOPERATIVE, RESTING IN BED, AND CURRENTLY HAS NO COMPLAINS. VSS.
--- NOTE | 2020-08-02 22:31 | NUR ---
ASSUMING CARE OF PATIENT -1900 PATIENT HAS BEEN LABILE WITH HER MOOD. SHE IS TEARFUL AT TIMES. DEFENSIVE AND AGITATED AT OTHERS. SHE IS MOSTLY CALM AND COOPERATIVE. HER VITAL SIGNS ARE STABLE. SHE WAS ABLE TO AMBULATE TO THE SHOWER WELL. SHE HAD SOME COMPLAINTS OF DIZZINESS WITH AMBULATION. DENYING PAIN. SHE WAS COMPLIANT WITH TAKING HER ZYPREXA THIS EVENING. SHE HAS BEEN VOIDING WITHOUT PROBLEM AND TOLERATING HER CLEAR LIQUID DIET WELL. PIV X [address] NS INFUSING AT 75 MLS/HR.
--- NOTE | 2020-08-03 02:06 | NUR ---
TRANSFER PT TRANSFERED TO THIS UNIT AT 0050. PT IS CALM AND COOPERATIVE. PT IS SLEEPING AND WENT TO BED IMEDIATLY UPON ARRIVAL.
--- NOTE | 2020-08-03 04:29 | NUR ---
SHIFT SUMMARY ASSUMED CARE OF PT AT 0050. PT IS A/OX4. PT WAS PLEASEANT AND COOPERATIVE. PT IS INDEPNDENT IN ROOM. PT ASKED FOR SOMTHING TO SLEEP BUT UPON ASSESSMENT PT WAS ALREADY ASLEEP. PT WAS CONCERNED WHY SHE WAS STILL GETTING ABX EVEN THOUGH SHE ALREADY TOOK SOME OUT PT FOR HER UTI. PT WAS PLACED ON CAMERA FOR HER SAFETY. CALL LIGHT IN REACH, BED IN LOWEST POSTION.
[2020-08-03 05:28] LABS: BASOPHILS ABSOLUTE AUTO 0.04 K/mm3 (0.00-0.23); BASOPHILS PERCENT AUTO 1 % (0-2); EOSINOPHILS ABSOLUTE AUTO 0.47 K/mm3 (0.00-0.68); EOSINOPHILS PERCENT AUTO 6 % (0-6); Hematocrit 39.8 % (33.0-51.0); Hemoglobin 12.8 g/dL (11.5-16.0); IMMATURE GRAN ABSOLUTE AUTO 0.02 K/mm3 (0.00-0.10); IMMATURE GRAN PERCENT AUTO 0 % (0-1); LYMPHOCYTES ABSOLUTE AUTO 1.98 K/mm3 (0.84-5.20); LYMPHOCYTES PERCENT AUTO 24 % (21-46); MONOCYTES ABSOLUTE AUTO 0.55 K/mm3 (0.16-1.47); MONOCYTES PERCENT AUTO 7 % (4-13); Mean Corpuscular HGB 30.8 pg (26.0-34.0); Mean Corpuscular HGB Conc 32.2 g/dL (31.5-36.5); Mean Corpuscular Volume 96 fL (80-100); Mean Platelet Volume 9.4 fL (9.1-12.4); NEUTROPHILS ABSOLUTE AUTO 5.21 K/mm3 (1.96-9.15); NEUTROPHILS PERCENT AUTO 63 % (41-73); Platelet Count 295 K/mm3 (150-400); RDW Coefficient Variation 12.5 % (11.7-14.2); RDW Standard Deviation 44.3 fL (35.1-46.3); Red Blood Cell Count 4.15 M/mm3 (3.80-5.20); White Blood Cell Count 8.27 K/mm3 (4.00-11.30)
[2020-08-03 05:57] LABS: Alanine Aminotransfer (ALT/SGP 24 U/L (12-78); Albumin, Blood 3.1 g/dL (3.4-5.0); Albumin/Globulin Ratio 0.9 (0.8-1.8); Alk Phos 71 U/L (50-136); Anion Gap 7 mmol/L (6-16); Aspartate Aminotrans (AST/SGOT 15 U/L (12-37); Bilirubin, Total 0.8 mg/dL (0.1-1.0); Blood Urea Nitrogen 6 mg/dL (8-24); Bun/Creatinine Ratio 8.5 (12.0-20.0); CO2, Blood 24 mmol/L (21-32); Calcium, Blood 8.4 mg/dL (8.5-10.1); Chloride, Blood 109 mmol/L (98-108); Globulin, Blood 3.6 g/dL (2.2-4.0); Glomerular Filtration Rate >60 (60-); Glucose, Blood 81 mg/dL (70-99); Magnesium, Blood 2.1 mg/dL (1.6-2.4); Potassium, Blood 3.7 mmol/L (3.5-5.5); Sodium, Blood 140 mmol/L (136-145); Total Protein, Blood 6.7 g/dL (6.4-8.2)
--- NOTE | 2020-08-03 19:07 | NUR ---
SHIFT SUMMARY: NO ACUTE CHANGES TO REPORT THIS SHIFT. PT HX MULTIPLE PSYCH ISSUES; DR PERAZA FOLLOWING; MEDICATED FOR ANXIETY PER EMAR. IV ABX D/C'd THIS SHIFT; NICOTINE TOP IN PLACE. PT INDEPENDENT IN ROOM. HOSPITALIST SERVICE DEFERRING TO DR PERAZA RE: DISCHARGE. REPORT GIVEN TO ONCOMING RN.
--- NOTE | 2020-08-04 04:01 | NUR ---
CONTROLLED AREA CHECKER SUMMARY NO ACUTE CHANGES THIS SHIFT. IND IN ROOM WITH CAMERA MONITORING IN PLACE. SUPPORT PERSON IS PRESENT IN ROOM. APPEARED TO SLEEP T/O NIGHT AFTER GIVING MELATONIN. COOPERATIVE WITH CARE. VSS. BED IN LOWEST POSITION WITH CALL LIGHT IN REACH. WILL CONTINUE TO MONITOR AND REPORT TO ONCOMING RN.
--- NOTE | 2020-08-04 18:43 | NUR ---
SHIFT SUMMARY: NO ACUTE CHANGES TO REPORT THIS SHIFT. PT A&O; OCC ANXIETY; COOPERATIVE WITH CARE. MEDICATED FOR ANXIETY PER EMAR. PT INDEPENDENT IN ROOM; REMOTE MONITORING IN EFFECT. PT REMAINS ON 2-MD HOLD; AWAITING DR Weaver RECOMMENDATIONS PRIOR TO D/C. WCTM.
--- NOTE | 2020-08-05 05:24 | NUR ---
SHIFT SUMMARY A/O, ABLE TO MAKE NEEDS KNOWN. COOPERATIVE WITH CARE. OUT TO HALLWAY MULTIPLE TIMES; WITH MULTIPLE REQUESTS. STATED ANXIOUS SEVERAL TIMES OVERNIGHT; MEDICATED PER EMAR. STATES HAS VERY BAD INSOMNIA; EXPLAINED THAT IT CAN BE VERY DIFFICULT WHEN YOU ARE IN A NEW PLACE TO SLEEP. RESTED OFF AND ON OVERNIGHT. NO ACUTE CHANGES. VSS/AFEBRILE. BED REMAINS IN LOWEST POSITION. CALL LIGHT AND BELONGINGS WITHIN REACH. WCTM. REPORT TO JOHNNY MURPHY.
--- NOTE | 2020-08-05 11:24 | NUR ---
PT UP IN ROOM, GOT 5 ICE PENN AND 4 CRANBERRY JUICES, PT DOESNT NEED ANYTHING ELSE AT MOMENT [place] LIGHT IN REACH.
[2020-08-05] MEDS ORDERED: AMOCLA500 PO (14:23)
[2020-08-05] MEDS ORDERED: OLANZAPINE15 M1 PO (14:24)
--- NOTE | 2020-08-05 14:45 | NUR ---
PT DCD HOME WITH MOTHER. DR PERAZA SAW THE PT TODAY AND DCD ALL HOLDS. IV WAS REMOVED. MED REC WAS FAXED TO PHARMACY OF CHOICE. ALL INSTRUCTIONS WERE REVIEWED WITH THE PT WHO VERBALIZED AN UNDERSTANDING. PT TOOK ALL HER PERSONAL BELONGINGS AND HER MOM IS HERE TO PICK HER UP.
== END 2020-08-05 14:44 | disposition home or self-care (01) | DRG 208 ==
LOC: ER 21:52 → ICUW 21:53 → MEDS 08-01 00:33 → ICUW 08-01 00:40 → MEDS 08-01 03:04 → ICUW 08-01 10:25 → MEDS 08-03 01:03
PROVIDERS: Emergency Medicine; Internal Medicine; Nurse Practitioner Acute Care; ADMIT Family Medicine
PROC: 0BH17EZ Insertion of Endotracheal Airway into Trachea, Via Natural or Artificial Opening (ICD-10-PCS; principal; 2020-08-01)
PROC: 5A1935Z Respiratory Ventilation, Less than 24 Consecutive Hours (ICD-10-PCS; 2020-08-01)
DX: J69.0 Pneumonitis due to inhalation of food and vomit (principal); G92 Toxic encephalopathy; R45.851 Suicidal ideations; F31.9 Bipolar disorder, unspecified; I10 Essential (primary) hypertension; E87.6 Hypokalemia; Z86.59 Personal history of other mental and behavioral disorders; F17.210 Nicotine dependence, cigarettes, uncomplicated; F60.3 Borderline personality disorder; Z91.5 Personal history of self-harm
CPT/HCPCS: 31500; 31720; 36415; 36600; 36680; 51702; 71045; 80053; 81001; 81025; 82550; 82803; 83735; 85025; 87040; 87070; 87205; 94002; 94003; 96372-59; 96374; 96375; 96376; 99285; A9270; C9113; G0378; G0480; J0295; J0330; J1200; J1630; J2060; J2250; J2543; J2704; J3010; J7030